=== PATIENT | female | born 1965 | race African-American/Black ===

== ENCOUNTER 2017-08-01 17:31 | Emergency (ER) | payer MEDICARE, OTHER ==
[~2017-08-01] VITALS: Ht 167.6 cm; Wt 90.7 kg
[2017-08-01 17:31] VITALS: BP 156/105
[~2017-08-01 17:31] MED LIST: DILANTIN100 MG ORAL
[2017-08-01 18:07] LABS: BASOPHILS % (AUTO) 2.4 % (0.0-2.0); LYMPHOCYTES % (AUTO) 42.7 % (20.0-45.0); MEAN CORPUSCULAR HEMOGLOBIN 34.1 PG (27.0-31.0); MEAN CORPUSCULAR VOLUME 101 FL (80-99); MEAN PLATELET VOLUME 7.9 FL (6.5-10.1); MONOCYTES % (AUTO) 14.8 % (1.0-10.0); NEUTROPHILS % (AUTO) 39.1 % (45.0-75.0); PLATELET COUNT 125 K/UL (150-450); RED BLOOD COUNT 4.08 M/UL (4.20-5.40); RED CELL DISTRIBUTION WIDTH 14.5 % (11.6-14.8); WHITE BLOOD COUNT 6.5 K/UL (4.8-10.8)
[2017-08-01 18:23] LABS: ACETAMINOPHEN < 10 ug/mL (10-30); ALANINE AMINOTRANSFERASE 48 U/L (3-33); ALBUMIN/GLOBULIN RATIO 1.6 (1.0-2.7); ALCOHOL < 10 mg/dL; ANION GAP 18 (5-15); ASPARTATE AMINO TRANSFERASE 117 U/L (5-40); CALCIUM 7.4 mg/dL (8.6-10.2); CARBON DIOXIDE 29 mEQ/L (20-30); CHLORIDE 91 mEQ/L (98-107); CREATININE 0.8 mg/dL (0.5-0.9); GLOMERULAR FILTRATION RATE > 60 mL/min (>60); HEMOLYSIS 73; SODIUM 138 mEQ/L (135-145); TOTAL PROTEIN 6.8 g/dL (6.6-8.7)
[2017-08-01 18:33] LABS: CKMB < 1.5 ng/mL (< 3.8)
[2017-08-01] MEDS ORDERED: Phenytoin 1,000 MG in NS 275 ML IV ONE (18:45)
[2017-08-01] MEDS ORDERED: NS 275 ML ONE (18:52)
[2017-08-01] MEDS ORDERED: Tubing IV Cassette IV ONE (18:52)
[2017-08-01] MEDS ORDERED: Phenytoin 250mg/5ml vial ONE (18:52)
[2017-08-01 19:26] VITALS: BP 125/96
[2017-08-01] MEDS ORDERED: PROAIR HFA8.5 GM INH (19:52)
[2017-08-01] MEDS ORDERED: DILANTIN100 MG ORAL (19:52)
[2017-08-01] MEDS ORDERED: ASPIR 8181 MG ORAL ×2 (19:52→23:44)
[2017-08-01] MEDS ORDERED: ADVAIR 250-501 EACH INH (19:52)
[2017-08-01] MEDS ORDERED: GABAPENTIN100 MG ORAL (19:52)
[2017-08-01] MEDS ORDERED: levETIRAcetam 500mg vial IV ONE (20:09)
[2017-08-01] MEDS ORDERED: levETIRAcetam 500 MG in D5W 110 ML IV ONE (20:15)
[2017-08-01 21:55] VITALS: BP 108/68
[2017-08-01] MEDS ORDERED: KEPPRA1000 MG ORAL (22:05)
--- NOTE | 2017-08-01 22:33 | Emergency Room Report ---
History of Present Illness General Chief Complaint: Seizure Source: Patient Present Illness HPI 52-year-old female presents to ED status post seizure. Per EMS patient had witnessed seizure just prior to arrival at grocery store. No reported head trauma. Patient has history of seizures states he takes Dilantin but is not compliant with her medication. Denies any headaches, fevers or chills. Denies any alcohol or drug use. No other aggravating relieving factors. Denies any other associated symptoms Allergies: Coded Allergies: AMPICILLIN (Verified Allergy, Unknown, 06/29/11) PENICILLINS (Verified Allergy, Unknown, 06/29/11) Patient History Past Medical History: asthma, seizures Past Surgical History: none Pertinent Family History: none Social History: Denies: smoking, alcohol use, drug use Now: No Immunizations: UTD Reviewed Nursing Documentation: PMH: Agreed, PSxH: Agreed Nursing Documentation-PMH Hx Asthma: Yes Hx Seizures: Yes Review of Systems All Other Systems: negative except mentioned in HPI Physical Exam Vital Signs Date Time Temp Pulse Resp B/P (MAP) Pulse Ox O2 Delivery O2 Flow Rate FiO2 08/01/17 17:26 98.1 81 18 156/74 99 Room Air Sp02 EP Interpretation: reviewed, normal General Appearance: no apparent distress, alert, GCS 15, non-toxic Head: normocephalic, atraumatic Eyes: bilateral eye normal inspection, bilateral eye PERRL ENT: hearing grossly normal, normal pharynx, no angioedema, normal voice Neck: full range of motion, supple/symm/no masses Respiratory: chest non-tender, lungs clear, normal breath sounds, speaking full sentences Cardiovascular #1: regular rate, rhythm, no edema Cardiovascular #2: 2+ carotid (R), 2+ carotid (L), 2+ radial (R), 2+ radial (L) , 2+ dorsalis pedis (R), 2+ dorsalis pedis (L) Gastrointestinal: normal bowel sounds, non tender, soft, non-distended, no guarding, no rebound Rectal: deferred Genitourinary: normal inspection, no CVA tenderness Musculoskeletal: back normal, gait/station normal, normal range of motion, non- tender Neurologic: alert, oriented x3, responsive, motor strength/tone normal, sensory intact, speech normal Psychiatric: judgement/insight normal, memory normal, mood/affect normal, no suicidal/homicidal ideation Reflexes: 3+ bicep (R), 3+ bicep (L), 3+ tricep (R), 3+ tricep (L), 3+ knee (R) , 3+ knee (L) Skin: normal color, no rash, warm/dry, well hydrated Lymphatic: no adenopathy Medical Decision Making Diagnostic Impression: Primary Impression: Seizure disorder Additional Impression: Noncompliance with medications ER Course Hospital Course 52-year-old F presents to ED status post seizure. Differential diagnosis includes- breakthrough seizure, alcohol abuse, noncompliance with medication Clinical course Patient placed on stretcher. Initial history and physical I ordered labs, IV fluids Labs-electrolytes okay, leukocytosis noted, hemoglobin/hematocrit stable. dilantin level low Given loading dose of Dilantin. Patient then had 2 more seizures in the emergency room. Patient states that she made a mistake and does not take Dilantin but takes Keppra. Given loading dose of Keppra Given that patient doesnt know her medications and had seizures here in ER believe she should be admitted. Because of insurance patient will be transferred i. I feel this is a highly complex case requiring extensive working including EKG/Rhythm strip, Xray/CT/US, Blood/urine lab work, repeat exams while in ED, and administration of strong opiates/narcotics for pain control, admission to hospital or close patient follow up. Diagnosis - seizure, noncompliance with medications Transferred in serious condition Labs Test 08/01/17 17:50 08/01/17 19:20 White Blood Count 6.5 K/UL (4.8-10.8) Red Blood Count 4.08 M/UL (4.20-5.40) Hemoglobin 13.9 G/DL (12.0-16.0) Hematocrit 41.0 % (37.0-47.0) Mean Corpuscular Volume 101 FL (80-99) Mean Corpuscular Hemoglobin 34.1 PG (27.0-31.0) Mean Corpuscular Hemoglobin Concent 34.0 G/DL (32.0-36.0) Red Cell Distribution Width 14.5 % (11.6-14.8) Platelet Count 125 K/UL (150-450) Mean Platelet Volume 7.9 FL (6.5-10.1) Neutrophils (%) (Auto) 39.1 % (45.0-75.0) Lymphocytes (%) (Auto) 42.7 % (20.0-45.0) Monocytes (%) (Auto) 14.8 % (1.0-10.0) Eosinophils (%) (Auto) 1.0 % (0.0-3.0) Basophils (%) (Auto) 2.4 % (0.0-2.0) Sodium Level 138 mEQ/L (135-145) Potassium Level 3.0 mEQ/L (3.4-4.9) Chloride Level 91 mEQ/L (98-107) Carbon Dioxide Level 29 mEQ/L (20-30) Anion Gap 18 (5-15) Blood Urea Nitrogen 7 mg/dL (7-23) Creatinine 0.8 mg/dL (0.5-0.9) Estimat Glomerular Filtration Rate > 60 mL/min (>60) Glucose Level 126 mg/dL (74-106) Calcium Level 7.4 mg/dL (8.6-10.2) Total Bilirubin 1.0 mg/dL (0.0-1.2) Aspartate Amino Transf (AST/SGOT) 117 U/L (5-40) Alanine Aminotransferase (ALT/SGPT) 48 U/L (3-33) Alkaline Phosphatase 72 U/L (35-104) Total Creatine Kinase 1103 U/L (26-140) Creatine Kinase MB < 1.5 ng/mL (< 3.8) Creatine Kinase MB Relative Index Total Protein 6.8 g/dL (6.6-8.7) Albumin 4.2 g/dL (3.5-5.2) Globulin 2.6 g/dL Albumin/Globulin Ratio 1.6 (1.0-2.7) Salicylates Level 6 mg/dL (10-30) Acetaminophen Level < 10 ug/mL (10-30) Phenytoin (Dilantin) Level < 0.8 ug/mL (10-20) Serum Alcohol < 10 mg/dL Urine Opiates Screen Negative (NEGATIVE) Urine Barbiturates Screen Negative (NEGATIVE) Phencyclidine (PCP) Screen Negative (NEGATIVE) Urine Amphetamines Screen Negative (NEGATIVE) Urine Benzodiazepines Screen Negative (NEGATIVE) Urine Cocaine Screen Negative (NEGATIVE) Urine Marijuana (THC) Screen Negative (NEGATIVE) EKG Diagnostic Results Rate: tachycardiac Rhythm: NSR ST Segments: no acute changes ASA given to the pt in ED: No Rhythm Strip Diag. Results EP Interpretation: yes Rhythm: NSR, no PVC's, no ectopy Last Vital Signs Date Time Temp Pulse Resp B/P (MAP) Pulse Ox O2 Delivery O2 Flow Rate FiO2 08/01/17 21:55 99.5 105 20 108/68 08/01/17 19:26 98 Room Air Status: improved Disposition: XFER SHT-TRM HOSP Condition: Serious Referrals: [facility],REFERRING (PCP) Patient Instructions: Seizure, Adult JONY ROONEY M.D. Aug 01, 2017 22:33
[2017-08-01] MEDS ORDERED: Lidocaine 2% Visc 15ml soln ORAL ONE (23:15)
[2017-08-01] MEDS ORDERED: OMEPRAZOLE40 M1 ORAL (23:45)
[2017-08-01] MEDS ORDERED: POTASSIUM99 M3 PO (23:46)
[2017-08-01] MEDS ORDERED: ADVAIR 100-501 EACH INH (23:47)
[2017-08-02 01:08] VITALS: BP 114/75
[2017-08-02 01:09] VITALS: BP 114/75
--- NOTE | 2017-08-02 19:03 | Cardiology Report ---
APPROVED REPORT EKG Measurement Heart [id number] Sinus tachycardia Voltage criteria for left ventricular hypertrophy Nonspecific ST and T wave abnormality Abnormal ECG
== END 2017-08-02 01:09 | disposition short-term general hospital (02) ==
LOC: EDBD 17:31 → EMR 17:50
DX: G40.909 Epilepsy, unspecified, not intractable, without status epilepticus (principal); Z91.14 Patient's other noncompliance with medication regimen; Z88.0 Allergy status to penicillin; Z88.8 Allergy status to other drugs, medicaments and biological substances; D72.829 Elevated white blood cell count, unspecified; R00.0 Tachycardia, unspecified
CPT/HCPCS: 36415; 80053; 80185; 80300; 82550; 82553; 82962; 85025; 93005; 96361; 96374; 96375; 99284; G0480; J1165; J1953; J7040; J7050; 80329; J8499